=== PATIENT | male | born 1940 | race Caucasian/White ===

== ENCOUNTER → 2020-07-08 | Outpatient (CLI) | payer MEDICARE | LOC: MRI 10:26 | PROVIDERS: ATTEND Specialist | DX: S63.521D Sprain of radiocarpal joint of right wrist, subsequent encounter (principal) ==

== ENCOUNTER → 2020-08-03 | Outpatient (RCR) | payer MEDICARE | LOC: OT 07-18 15:38 | PROVIDERS: ATTEND Specialist | DX: M25.531 Pain in right wrist (principal); M24.531 Contracture, right wrist ==

== ENCOUNTER 2020-08-10 13:00 | Outpatient (RCR) | payer MEDICARE | END 2020-09-02 | LOC: OT 13:00 | PROVIDERS: ATTEND Specialist | DX: M25.531 Pain in right wrist (principal); M24.531 Contracture, right wrist; R53.1 Weakness ==